=== PATIENT | male | born 1965 | race Caucasian/White ===

== ENCOUNTER 2021-05-20 15:51 | Emergency (ER) | payer SELFPAY ==
[~2021-05-20] VITALS: Ht 167.6 cm; Wt 81.6 kg
[2021-05-20 15:59] VITALS: BP 146/98
[2021-05-20 16:52] LABS: Basophils # (auto) 0.1 10 ^3/uL (0-0.2); Basophils % (auto) 0.8 % (0.0-2.0); Eosinophils # (auto) 0 10 ^3/uL (0-0.8); Eosinophils % (auto) 0.5 % (0.0-7.0); Hematocrit 40.6 % (41.0-53.0); Hemoglobin 14.3 g/dL (13.5-17.5); Lymphocytes # (auto) 1.4 10 ^3/uL (0.4-5.4); Lymphocytes % (auto) 13.7 % (10.0-50.0); Mean Corpuscular Hemoglobin 35.5 pg (28.0-32.0); Mean Corpuscular Hgb Conc. 35.2 g/dL (32.0-36.0); Monocytes # (auto) 1.5 10 ^3/uL (0-1.3); Monocytes % (auto) 14.2 % (0.0-12.0); Neutrophils # (auto) 7.2 10 ^3/uL (1.6-8.6); Neutrophils % (auto) 70.8 % (37.0-80.0); Nucleated Red Blood Cells % 0.1 %; Red Blood Cells 4.02 10^6/uL (4.5-5.90); Red Cell Distribution Width 13.4 % (11.8-14.3); White Blood Cell 10.2 10^3/uL (4.4-10.8)
[2021-05-20 17:07] LABS: Potassium 3.5 mmol/L (3.5-5.1)
[2021-05-20 17:08] LABS: Albumin 2.8 g/dL (3.4-5.0); Calcium 7.8 mg/dL (8.5-10.1)
[2021-05-20 17:13] LABS: BUN/Creatinine Ratio 12.7; Bilirubin, Total 1.1 mg/dL (0.2-1.0); Total Protein 7.6 g/dL (6.4-8.2)
[2021-05-20 18:02] LABS: INR 1.12 (0.9-1.15); Partial Thromboplastin Time 26.2 sec (23.6-33.0)
[2021-05-20] MEDS ORDERED: FUROSEMIDE 40 MG/4 ML VIAL IV ONE ×2 (18:15→21:00)
== END 2021-05-20 21:42 | disposition left against medical advice (07) ==
LOC: ER 15:51 → EDBD 15:51 → ER 21:42
DX: R09.89 Other specified symptoms and signs involving the circulatory and respiratory systems (principal); F17.210 Nicotine dependence, cigarettes, uncomplicated; M10.9 Gout, unspecified; Z53.29 Procedure and treatment not carried out because of patient's decision for other reasons
CPT/HCPCS: 36415; 71045; 80053; 83880; 84484; 85025; 85610; 85730

== ENCOUNTER 2021-05-22 01:32 | Emergency (ER) | payer SELFPAY ==
[~2021-05-22] VITALS: Ht 167.6 cm; Wt 100.7 kg
[2021-05-22 03:45] LABS: Albumin 2.6 g/dL (3.4-5.0); BUN/Creatinine Ratio 17.1; Potassium 3.3 mmol/L (3.5-5.1)
[2021-05-22 03:50] LABS: Total Protein 7.2 g/dL (6.4-8.2)
[2021-05-22 04:11] LABS: Eosinophils # (auto) 0.1 10 ^3/uL (0-0.8); Hemoglobin 13.2 g/dL (13.5-17.5); Nucleated Red Blood Cells % 0.1 %
[2021-05-22 04:14] LABS: Basophils # (auto) 0.1 10 ^3/uL (0-0.2); Eosinophils % (auto) 1.7 % (0.0-7.0); Hematocrit 36.9 % (41.0-53.0); Lymphocytes # (auto) 1.7 10 ^3/uL (0.4-5.4); Mean Corpuscular Hemoglobin 35.6 pg (28.0-32.0); Mean Corpuscular Hgb Conc. 35.9 g/dL (32.0-36.0); Mean Corpuscular Volume 99.3 fL (80.0-100.0); Monocytes # (auto) 1.3 10 ^3/uL (0-1.3); Monocytes % (auto) 14.8 % (0.0-12.0); Neutrophils # (auto) 5.4 10 ^3/uL (1.6-8.6); Neutrophils % (auto) 62.5 % (37.0-80.0); Red Blood Cells 3.72 10^6/uL (4.5-5.90); Red Cell Distribution Width 13.2 % (11.8-14.3); White Blood Cell 8.6 10^3/uL (4.4-10.8)
[2021-05-22 05:33] VITALS: BP 148/75
== END 2021-05-22 05:35 | disposition home or self-care (01) ==
LOC: ER 01:34
DX: R06.00 Dyspnea, unspecified (principal); F15.10 Other stimulant abuse, uncomplicated; F17.210 Nicotine dependence, cigarettes, uncomplicated; F10.10 Alcohol abuse, uncomplicated; Y90.9 Presence of alcohol in blood, level not specified; M10.9 Gout, unspecified
CPT/HCPCS: 36415; 71045; 80053; 83880; 84484; 85025; 93005

== ENCOUNTER 2021-11-07 17:00 | Emergency (ER) | payer SELFPAY ==
[~2021-11-07] VITALS: Ht 167.6 cm; Wt 60.0 kg
[2021-11-07 21:19] VITALS: BP 118/81
[2021-11-07] MEDS ORDERED: methylPREDNISolone SOD SUCC 125 MG/2 ML VL IM ONE (21:30)
[2021-11-07] MEDS ORDERED: KETOROLAC TROMETH 30 MG/ML 1ML VIAL IM ONE (21:30)
[2021-11-07] MEDS ORDERED: INDO50CA82 PO (22:08)
== END 2021-11-07 22:08 | disposition home or self-care (01) ==
LOC: ER 17:00
DX: M10.1 Lead-induced gout (principal); F17.210 Nicotine dependence, cigarettes, uncomplicated; F15.10 Other stimulant abuse, uncomplicated
CPT/HCPCS: 73562; 96372; 99284; J1885; J2930